=== PATIENT | female | born 1965 | race Caucasian/White ===

== ENCOUNTER → 2016-12-09 | Outpatient (CLI) | payer MEDICARE, OTHER ==
[2016-12-10 21:59] LABS: BUN/CREATININE RATIO 18 (0-10)
== END ==
LOC: LAB 14:48
PROVIDERS: Dermatology
DX: D64.9 Anemia, unspecified (principal); F41.1 Generalized anxiety disorder; R53.82 Chronic fatigue, unspecified; L50.9 Urticaria, unspecified; E06.9 Thyroiditis, unspecified
CPT/HCPCS: 36415; 80053; 80076; 82248; 85025

== ENCOUNTER → 2020-11-23 | Outpatient (CLI) | payer MEDICARE, OTHER ==
[2020-11-23 14:43] LABS: HEMOGLOBIN 15.2 gm/dl (12.3-15.3); RED BLOOD COUNT 4.7 M/UL (4.00-5.10); WHITE BLOOD COUNT 6.4 K/UL (4.5-11.0)
[2020-11-23 15:08] LABS: BUN/CREATININE RATIO 17 (0-10)
[2020-11-28 15:10] LABS: QUANTIFERON MITOGEN VALUE >10.00 IU/mL (.); QUANTIFERON NIL VALUE 0.06 IU/mL (.); QUANTIFERON TB2 AG VALUE 0.16 IU/mL (.); QUANTIFERON-TB GOLD PLUS Negative (Negative)
== END ==
LOC: LAB 13:44
PROVIDERS: Dermatology
DX: J43.9 Emphysema, unspecified (principal); L73.2 Hidradenitis suppurativa; R53.83 Other fatigue; R63.4 Abnormal weight loss; E66.3 Overweight; R79.9 Abnormal finding of blood chemistry, unspecified
CPT/HCPCS: 36415; 71046; 80053; 85025; 85027

== ENCOUNTER 2021-03-13 20:10 | Inpatient (IN) | payer MEDICARE, OTHER ==
[~2021-03-13] VITALS: Ht 160 cm; Wt 81.6 kg
[2021-03-13 21:12] LABS: HEMOGLOBIN 15.2 gm/dl (12.3-15.3); RED BLOOD COUNT 4.68 M/UL (4.00-5.10); WHITE BLOOD COUNT 7.4 K/UL (4.5-11.0)
[2021-03-13 21:34] LABS: BUN/CREATININE RATIO 24 (0-10)
[2021-03-14] MEDS ORDERED: VENLAFAXINE H37.5 M1 PO (09:55)
[2021-03-14] MEDS ORDERED: HUMIRA PEN40 MG/0.4 SQ (09:55)
[2021-03-14] MEDS ORDERED: ALBUTEROL2.5 MG/3 M INH (09:56)
[2021-03-14] MEDS ORDERED: BETAMETHASONE D60 ML TP (09:57)
[2021-03-14] MEDS ORDERED: PROCTOCREAM-HC30 G1 TP (09:58)
[2021-03-14] MEDS ORDERED: LOTRISONE CREAM15 GM TP (09:58)
[2021-03-14] MEDS ORDERED: TRIAMCINOLONE A80 GM TP (09:58)
[2021-03-14] MEDS ORDERED: METROCREAM 0.7545 GM EXT (09:59)
[2021-03-15 03:27] LABS: HEMOGLOBIN 13.9 gm/dl (12.3-15.3); RED BLOOD COUNT 4.35 M/UL (4.00-5.10)
[2021-03-15 03:42] LABS: BUN/CREATININE RATIO 16 (0-10)
[2021-03-16 04:47] LABS: HEMOGLOBIN 13.3 gm/dl (12.3-15.3); RED BLOOD COUNT 4.19 M/UL (4.00-5.10)
[2021-03-16 04:52] LABS: WHITE BLOOD COUNT 6.9 K/UL (4.5-11.0)
[2021-03-16 05:12] LABS: BUN/CREATININE RATIO 16 (0-10)
[2021-03-17 08:44] LABS: HEMOGLOBIN 13.9 gm/dl (12.3-15.3); RED BLOOD COUNT 4.42 M/UL (4.00-5.10)
[2021-03-17 10:07] LABS: BUN/CREATININE RATIO 13 (0-10)
--- NOTE | 2021-03-17 15:50 | NUR ---
O2 SAT ON ROOMAIR AT REST WAS 86%.O2 SAT ON ROOMAIR WITH ACTIVITY WAS 82%.
[2021-03-18 07:37] LABS: HEMOGLOBIN 13.3 gm/dl (12.3-15.3); RED BLOOD COUNT 4.22 M/UL (4.00-5.10); WHITE BLOOD COUNT 7.7 K/UL (4.5-11.0)
[2021-03-18 07:57] LABS: BUN/CREATININE RATIO 13 (0-10)
[2021-03-18] MEDS ORDERED: SYMBICORT 80-41 INHA INH (11:39)
[2021-03-18] MEDS ORDERED: BENZONATATE100 MG PO (11:39)
[2021-03-18] MEDS ORDERED: AUGMENTIN400 MG/5 M PO (11:39)
== END 2021-03-18 13:54 | disposition home or self-care (01) | DRG 177 ==
LOC: ER1 20:10 → CDU 03-14 00:04 → M/S 03-14 00:04
PROVIDERS: Emergency Medicine; Internal Medicine Infectious Disease; Physician Assistant Medical; ADMIT Internal Medicine
DX: J69.0 Pneumonitis due to inhalation of food and vomit (principal); J96.01 Acute respiratory failure with hypoxia; E66.2 Morbid (severe) obesity with alveolar hypoventilation; Q90.9 Down syndrome, unspecified; J45.909 Unspecified asthma, uncomplicated; R13.10 Dysphagia, unspecified; Z20.822 Contact with and (suspected) exposure to COVID-19; Z98.890 Other specified postprocedural states; Z68.34 Body mass index [BMI] 34.0-34.9, adult
CPT/HCPCS: 0240U; 36415; 36600; 71046; 74230; 80048; 80053; 82550; 82553; 82803; 83036; 83735; 83874; 83880; 84439; 84443; 84484; 85025; 85027; 86140; 92610; 92611-GN; 93005; 94640; 94660; 94664; 94760; 96374; 99285; J0295; J0696; J1100; J1650; J7030; Q9967

== ENCOUNTER → 2021-07-13 | Outpatient (CLI) | payer MEDICARE, OTHER ==
[~2021-07-13] MED LIST: ALBUTEROL2.5 MG/3 M INH; AUGMENTIN400 MG/5 M PO; BENZONATATE100 MG PO; BETAMETHASONE D60 ML TP; HUMIRA PEN40 MG/0.4 SQ; LOTRISONE CREAM15 GM TP; METROCREAM 0.7545 GM EXT; PROCTOCREAM-HC30 G1 TP; SYMBICORT 80-41 INHA INH; TRIAMCINOLONE A80 GM TP; VENLAFAXINE H37.5 M1 PO
[2021-07-13 15:08] LABS: HEMOGLOBIN 15.3 gm/dl (12.3-15.3); RED BLOOD COUNT 4.74 M/UL (4.00-5.10); WHITE BLOOD COUNT 6.5 K/UL (4.5-11.0)
[2021-07-13 15:24] LABS: BUN/CREATININE RATIO 19 (0-10)
== END ==
LOC: LAB 14:23
PROVIDERS: Dermatology
DX: L70.9 Acne, unspecified (principal); L73.2 Hidradenitis suppurativa
CPT/HCPCS: 36415; 80053; 85027

== ENCOUNTER → 2022-01-13 | Outpatient (CLI) | payer MEDICARE, OTHER ==
[2022-01-13 12:48] LABS: HEMOGLOBIN 15.8 gm/dl (12.3-15.3); RED BLOOD COUNT 4.94 M/UL (4.00-5.10); WHITE BLOOD COUNT 6.4 K/UL (4.5-11.0)
[2022-01-13 13:12] LABS: BUN/CREATININE RATIO 28 (0-10)
[2022-01-17 11:17] LABS: QUANTIFERON MITOGEN VALUE >10.00 IU/mL (.); QUANTIFERON NIL VALUE 0.06 IU/mL (.); QUANTIFERON TB1 AG VALUE 0.15 IU/mL (.); QUANTIFERON TB2 AG VALUE 0.17 IU/mL (.); QUANTIFERON-TB GOLD PLUS Negative (Negative)
== END ==
LOC: LAB 11:41
PROVIDERS: Dermatology
DX: J43.9 Emphysema, unspecified (principal); L73.2 Hidradenitis suppurativa
CPT/HCPCS: 36415; 71046; 80053; 85027

== ENCOUNTER → 2022-04-20 | Outpatient (CLI) | payer MEDICARE, OTHER | LOC: KOH-I 13:06 | DX: M25.521 Pain in right elbow (principal); M89.8X2 Other specified disorders of bone, upper arm | CPT/HCPCS: 73080 ==